=== PATIENT | female | born 2000 | race Caucasian/White ===

== ENCOUNTER 2022-03-10 07:43 | Inpatient (IN) ==
--- NOTE | 2022-02-17 11:15 | PAT Medication Instructions ---
Medication Instructions Date of Service February 17, 2022 Home Medications atorvastatin 10 mg tablet (Lipitor) 10 mg PO HS bupropion HCl 150 mg tablet,12 hr sustained-release 150 mg PO BID ergocalciferol (vitamin D2) 1,250 mcg (50,000 unit) capsule (Vitamin D2) 1,250 mcg PO QAM multivitamin-ferrous fumarate-folic acid 18 mg-400 mcg tablet (Centrum Complete) 1 tab PO QAM naltrexone 50 mg tablet 25 mg PO BID sertraline 50 mg tablet 50 mg PO HS spironolactone 50 mg tablet 50 mg PO HS ASK your prescriber and surgeon naltrexone 50 mg tablet 25 mg PO BID (stop taking 72 hours prior to surgery if able- check with prescribing provider) DO NOT take the morning of surgery ergocalciferol (vitamin D2) 1,250 mcg (50,000 unit) capsule (Vitamin D2) 1,250 mcg PO QAM multivitamin-ferrous fumarate-folic acid 18 mg-400 mcg tablet (Centrum Complete) 1 tab PO QAM Take morning of surgery With a small sip of water, OTHERWISE NOTHING TO EAT OR DRINK AFTER MIDNIGHT: bupropion HCl 150 mg tablet,12 hr sustained-release 150 mg PO BID Take evening before surgery atorvastatin 10 mg tablet (Lipitor) 10 mg PO HS bupropion HCl 150 mg tablet,12 hr sustained-release 150 mg PO BID sertraline 50 mg tablet 50 mg PO HS spironolactone 50 mg tablet 50 mg PO HS Other Notes If you have any questions please call us at [phone] or [phone] or [phone] or [phone]
--- NOTE | 2022-02-24 11:21 | Anesthesiology Consultation ---
Date of Service February 24, 2022 Assessment & Plan (1) Encounter for pre-operative examination: - Patient acceptable risk for surgery pending surgeon-ordered preop UA. Patient was unable to void at [facility] and will be taking urine sample to PCP/Dr. Kelly Castillo. Awaiting preop UA report. - COVID screening: Per assessment on 02/24: No known COVID-19 positive contacts or current COVID-19 related symptoms. Travel screen NEGATIVE. Surgeon arranging preop COVID testing. Awaiting results. - Check test AM DOS Chart Review Chart Review: Patient seen in Pre Admission Testing Teaching & Discussion Pre-Anesthesia Teaching/Discussion Notes: Instructed NPO after midnight before surgery,except medications with 15 cc of water. Medication instructions provided according to the [facility] guidelines. History Surgery Operation Date: 03/10/22 10:05 Proposed Procedures p L3 - L4 Decompression and Disectomy, Spinal Cord Monitoring - Antonio Quintero, Height/Weight Height: 5 ft 3 in Weight: 150.7 kg Allergies Allergy/AdvReac Type Severity Reaction Status Date / Time amoxicillin Allergy Unknown Hives Verified 02/17/22 10:17 cefuroxime [From Ceftin] Allergy Unknown Hives Verified 02/17/22 10:44 sulfamethoxazole Allergy Unknown Hives Verified 02/17/22 10:18 [From Bactrim] trimethoprim [From Bactrim] Allergy Unknown Hives Verified 02/17/22 10:18 Medications Home Medications Medication Instructions Recorded Confirmed Last Taken atorvastatin 10 mg tablet (Lipitor) 10 mg PO HS 02/17/22 02/17/22 Unknown bupropion HCl 150 mg tablet,12 hr 150 mg PO BID 02/17/22 02/17/22 Unknown sustained-release ergocalciferol (vitamin D2) 1,250 1,250 mcg PO QAM 02/17/22 02/17/22 Unknown mcg (50,000 unit) capsule (Vitamin D2) multivitamin-ferrous 1 tab PO QAM 02/17/22 02/17/22 Unknown fumarate-folic acid 18 mg-400 mcg tablet (Centrum Complete) naltrexone 50 mg tablet 25 mg PO BID 02/17/22 02/17/22 Unknown sertraline 50 mg tablet 50 mg PO HS 02/17/22 02/17/22 Unknown spironolactone 50 mg tablet 50 mg PO HS 02/17/22 02/17/22 Unknown Past Medical History Medical History Anxiety Depression Elevated testosterone level in female Reason for spironolactone per pt Foot drop, left Hyperlipidemia Lumbar disc disease Morbid obesity Sleep apnea CPAP (occasional) Exercise / Class Metabolic Activity III < 4 Walking/Shop/Light housework (uses cane PRN) Past Surgical History Surgical History S/P colonoscopy S/P tonsillectomy and adenoidectomy Past Anesthesia History No Hx of Anesthesia Complications and No Family Hx of Anesthesia Complications History of PONV No Hx of PONV and No Hx of Motion Sickness Social History Smoking Status: Current every day smoker tobacco type: e-cigarettes (Vapes daily (trying to decrease)) Do You Dip or Chew Tobacco: No Hx Alcohol Use: Yes (Occasional) Alcohol type: beer, wine and hard liquor alcohol intake frequency: a few times a month Hx Substance Use: No substance use type: does not use Review of Systems Patient denies chest pain, shortness of breath, fever, chills, cough, wheezing, palpitations. Physical Exam Vital Signs VITALS BP 128/70 P 100 TEMP 98.8 SP02 96%RA RESP 16 PHYSICAL Full cervical extension range of motion. Full TMJ range of motion. TMD 3 finger breaths Mallampati Score 3 Dentition: intact (+ tongue piercing- pt made aware to remove DOS) Lungs: clear throughout to auscultation Cardiac: regular rate and rhythm, no murmurs noted Spine: normal Carotid arteries: negative bruit Extremities: no edema Thick neck Lab Results Anesthesia Preop Results Results Anesthesia Widget: WBC 10.11 K/uL (4.8-10.8) 02/24/22 Hgb 13.0 g/dL (12.0-16.0) 02/24/22 Hct 39.0 % (37-47) 02/24/22 Plt 386 K/uL (130-400) 02/24/22 PT 10.6 Seconds (9.0-12.0) 02/24/22 PTT 33.7 Seconds (21.0-31.0) H 02/24/22 INR 1.0 (0.9-1.1) 02/24/22 Blood Type A Positive 02/24/22 Antibody Screen NEGATIVE 02/24/22 Testing Laboratory Results 01/26/22 SODIUM 140 POTASSIUM 4.5 CHLORIDE 101 CO2 27 BUN 13 CREATININE 0.8 GLUCOSE 94 A1C 5.5% Electrocardiogram Date: 02/24/22 NSR with sinus arrhythmia at 89bpm. Normal ECG. Chest X-Ray Date: 02/24/22 FINDINGS: Frontal and lateral radiographs of the chest demonstrate the cardiomediastinal silhouette to be within normal limits. The lungs are clear of alveolar opacities. There is no evidence for effusion bilaterally. There is no evidence for vascular congestion. There is no acute osseous pathology. IMPRESSION: No acute cardiopulmonary disease.
[~2022-03-10 07:43] MED LIST: ACETAMINOPHEN 500 MG TAB PO SCH; CLINDAMYCIN/D5W 600 MG/50 ML BAG **Premixed Bag IV SCH; CeleBREX 200 MG CAP PO SCH; GABAPENTIN 900 MG DOSE PO SCH; LR 15ML/HR IV SCH
[2022-03-10] MEDS ORDERED: fentaNYL citrate 100 MCG/2 ML VIAL ONE (08:25)
[2022-03-10] MEDS ORDERED: LIDOCAINE 2% 2 ML VIAL/AMP(20MG/ML) INFIL ONE (08:26)
[2022-03-10] MEDS ORDERED: PROPOFOL IV EMULSION 10 MG/ML 20 ML VIAL IV ONE (08:26)
[2022-03-10] MEDS ORDERED: MIDAZOLAM HCL 1 MG/ML 2ML VIAL ONE (08:26)
[2022-03-10] MEDS ORDERED: DEXAMETHASONE SOD INJ 4 MG/ML VIAL ONE (08:26)
[2022-03-10] MEDS ORDERED: SUCCINYLCHOLINE CHLORIDE 20 MG/ML 10 ML VIAL IV ONE (08:26)
[2022-03-10] MEDS ORDERED: ROCURONIUM BROMIDE 10 MG/ML 5 ML VIAL IV ONE ×6 (08:26→12:05)
[2022-03-10] MEDS ORDERED: ONDANSETRON INJ 2 MG/ML 2 ML VIAL ONE (08:26)
--- NOTE | 2022-03-10 08:42 | History & Physical Bridge Note ---
Date of Service March 10, 2022 History & Physical Bridge Note I have examined the patient, reviewed the History & Physical and in the interval since the performance of the History & Physical I have noted the following changes of clinical significance: no changes noted
[2022-03-10] MEDS ORDERED: ceFAZolin 330 MG/ML 1 GM VIAL ONE (08:44)
[2022-03-10] MEDS ORDERED: BUPIVACAINE/EPINEPHRINE 0.25% 1:200,000 30 ML VIAL ONE (08:44)
--- NOTE | 2022-03-10 08:44 | History & Physical Report ---
Date of Service March 10, 2022 Assessment & Plan (1) Lumbar disc herniation with radiculopathy: Plan: L3-L4 decompression and discectomy History of Present Illness Chief Complaint: Back and leg pain Primary Care Provider: Kelly Herzog This is a 21-year-old female who presents with severe back and leg pain. Fail ing course of nonoperative care she is here for surgical invention. Allergies Allergy/AdvReac Type Severity Reaction Status Date / Time amoxicillin Allergy Unknown Hives Verified 03/10/22 08:11 cefuroxime [From Ceftin] Allergy Unknown Hives Verified 03/10/22 08:11 sulfamethoxazole Allergy Unknown Hives Verified 03/10/22 08:11 [From Bactrim] trimethoprim [From Bactrim] Allergy Unknown Hives Verified 03/10/22 08:11 Home Medications Medication Instructions Recorded Confirmed Type atorvastatin 10 mg tablet (Lipitor) 10 mg PO HS 02/17/22 03/10/22 History bupropion HCl 150 mg tablet,12 hr 150 mg PO BID 02/17/22 03/10/22 History sustained-release ergocalciferol (vitamin D2) 1,250 1,250 mcg PO QAM 02/17/22 03/10/22 History mcg (50,000 unit) capsule (Vitamin D2) multivitamin-ferrous 1 tab PO QAM 02/17/22 03/10/22 History fumarate-folic acid 18 mg-400 mcg tablet (Centrum Complete) naltrexone 50 mg tablet 25 mg PO BID 02/17/22 03/10/22 History sertraline 50 mg tablet 50 mg PO HS 02/17/22 03/10/22 History spironolactone 50 mg tablet 50 mg PO HS 02/17/22 03/10/22 History Past Med/Surg History Medical History Anxiety Depression Elevated testosterone level in female Reason for spironolactone per pt Foot drop, left Hyperlipidemia Lumbar disc disease Morbid obesity Sleep apnea CPAP (occasional) Surgical History S/P colonoscopy S/P tonsillectomy and adenoidectomy Social History Smoking Status: Current every day smoker Tobacco Type: E-cigarettes / Vaping Second Hand Exposure: No; Do You Dip or Chew Tobacco: No; Tobacco Cessation Education Requested by Patient: No Hx Alcohol Use: Yes (Occasional) Alcohol type: beer, wine and hard liquor Hx Substance Use: No Preferred Language: Macedonian Communication Ability: Effective Pipe Smoking Machine Offbearer Required: No Beliefs That Will Affect Care: None Current Living Situation: Parent Other Information That Helps Us Care for You: No Feels Safe at Home: Yes Safety Concerns: Feels Safe At This Time Assistive Devices: Cane, CPAP and Glasses Physical Exam Physical Exam: Patient is alert and oriented Heart regular in rhythm Lungs clear Results & Data Results & Data ([facility]) Vital Signs (Past 12 Hours) Vital Signs Temp Pulse Resp BP Pulse Ox 03/10/22 08:14 37.4 C 97 H 18 140/71 97
[2022-03-10 08:54] LABS: Pregnancy Test, Serum Negative (Negative)
[2022-03-10] MEDS ORDERED: PROMETHAZINE HCL 12.5 MG in SODIUM CHLORIDE 0.9% 50 ML IV PRN ×2 (09:02→12:38)
[2022-03-10] MEDS ORDERED: ATROPINE SULFATE 0.1 MG/ML 10ML SYR IV PRN (09:02)
[2022-03-10] MEDS ORDERED: HYDROmorphone INJ 2 MG/ML SYR/VIAL IV PRN (09:02)
[2022-03-10] MEDS ORDERED: ONDANSETRON INJ 2 MG/ML 2 ML VIAL IV PRN ×2 (09:02→12:38)
[2022-03-10] MEDS ORDERED: ePHEDrine sulfate 50 MG/ML AMP IV PRN (09:02)
[2022-03-10] MEDS ORDERED: CLINDAMYCIN 300 MG/D5W 50 ML BAG IV ONE (09:35)
[2022-03-10] MEDS ORDERED: CLINDAMYCIN PHOS 300 MG/2 ML VIAL IV ONE (10:16)
[2022-03-10] MEDS ORDERED: PHENYLEPHRINE HCL 10 MG/ML VIAL ONE (10:23)
[2022-03-10] MEDS ORDERED: GLYCOPYRROLATE 0.2 MG/ML VIAL ONE (10:24)
[2022-03-10] MEDS ORDERED: NEOSTIGMINE METHYLSULFATE 1 MG/ML 10ML VIAL ONE (10:24)
[2022-03-10] MEDS ORDERED: FLOSEAL HEMOSTATIC MATRIX 10ML TOP ONE (10:36)
--- NOTE | 2022-03-10 10:51 | Operative Report ---
Post Operative Report Pre & Post Diagnosis Operation Date: 03/10/22 09:15 Pre-Op Diagnosis: L3-L4 disc herniation with radiculopathy Morbid obesity Post-Op Diagnosis: L3-L4 disc herniation with radiculopathy Morbid obesity I identified the patient and participated in the time-out.: Yes Procedure Operation Date: 03/10/22 09:15 Actual Procedures Lumbar decompression with bilateral medial facetectomies and partial discectomy L3-L4 Surgeon Antonio Quintero, DO Buyer Intern None Estimated Blood Loss 25 Findings See Below The patient is 5 foot 3 inches tall weighing over 152 kg with a BMI in excess of 59. Patient's body habitus did contribute to significant technical difficulty requiring her deepest retractors and longer instruments in order to perform her procedure. This had at least 50% increased operative time. Specimens None Indications This is a 21-year-old female presents with above-mentioned diagnosis of failed course of nonoperative care and having progressive neuro deficit is here for surgical invention. Description of Procedure Patient was met with identified informed consent obtained. Patient was then taken to the operative suite underwent patient placed in a prone position the Wister table top Brennen frame. All bony prominences well-padded eyes inspected to ensure no external pressure placed upon the. This point the lumbar spine was prepped and draped no sterile fashion. Sharp dissection with assistance of Bovie cautery from down to and exposing the lamina and interlaminar space at L3- L4. Self-retaining retractors placed. Then for midline decompression including bilateral medial facetectomies addressing severe spinal stenosis and obvious neural compression. Was able to mobilize the left traversing nerve root medially to excise massive amounts of disc material that were occupying a canal. After these were removed the area was copiously irrigated explored to ensure all loose fragments addressed. 10 round TAZ drain inserted. The incision was then closed with 1 Vicryl the fascia 2-0 Vicryl subcutaneously and 4 Monocryl for final skin closure. Steri-Strip sterile dressings placed. Patient will continue PACU stable condition. I attest to the content of the Intraoperative Record and any orders documented therein. Any exceptions are noted below.
[2022-03-10] MEDS: fentaNYL citrate 100 MCG/2 ML VIAL IV PRN ×3 (11:13→12:00)
--- NOTE | 2022-03-10 12:19 | Fluoroscopy Report ---
INTRAOPERATIVE RADIOGRAPH CLINICAL HISTORY: L3-L4 discectomy. Fluoroscopy time: 3 seconds. FINDINGS: A single spot fluoroscopic image of the lumbar spine is presented. A surgical probe project s posteriorly at the level of the superior endplate of L4. IMPRESSION: Intraoperative image from lumbar spinal surgery as above. Electronically signed by: Sukhjinder Daley M.D. 03/10/2022 12:18 PM
[2022-03-10] MEDS: LACTATED RINGER'S 1,000 ML IV SCH ×2 (12:30→20:00)
[2022-03-10] MEDS ORDERED: LORazepam 0.5 MG TAB PO PRN (12:38)
[2022-03-10] MEDS ORDERED: ONDANSETRON 4 MG OD TAB PO PRN (12:38)
[2022-03-10] MEDS ORDERED: DO NOT ADMINISTER PNEUMOCOCCAL VACCINE PRN (12:38)
[2022-03-10] MEDS ORDERED: HYDROmorphone INJ 1 MG/ML SYRINGE IV PRN (12:38)
[2022-03-10] MEDS ORDERED: METOCLOPRAMIDE HCL INJ 5 MG/ML 2 ML VIAL IV PRN (12:38)
[2022-03-10] MEDS ORDERED: NALOXONE HCL 0.4 MG/1 ML VIAL/CARP IV PRN (12:38)
[2022-03-10] MEDS ORDERED: SOD PHOSPHATE/SOD BIPHOSPHATE ENEMA 132 ML BTL PR PRN (12:38)
[2022-03-10] MEDS ORDERED: traMADol HCL 50 MG TABLET PO PRN (12:38)
[2022-03-10] MEDS ORDERED: LORazepam 0.5 MG in SYRINGE 0.25 ML IV PRN (12:38)
[2022-03-10] MEDS ORDERED: MAGNESIUM HYDROXIDE SUSP 30 ML UDC PO PRN (12:38)
[2022-03-10] MEDS ORDERED: HYDROmorphone INJ 0.5 MG/0.5 ML SYR IV PRN (12:38)
[2022-03-10] MEDS ORDERED: ACETAMINOPHEN 500 MG TAB PO PRN (12:38)
[2022-03-10] MEDS ORDERED: DO NOT ADMINISTER FLU VACCINE PRN (12:38)
[2022-03-10] MEDS ORDERED: ALUMINUM/MAGNESIUM SUSP 30 ML UDC PO PRN (12:38)
[2022-03-10] MEDS ORDERED: diphenhydrAMINE Capsule 25 MG CAP PO PRN (12:38)
[2022-03-10] MEDS ORDERED: bisacodyL 10 MG SUPP PR PRN (12:38)
[2022-03-10] MEDS ORDERED: ACETAMINOPHEN 1,000 MG/100 ML VIAL IV PRN (12:38)
[2022-03-10] MEDS ORDERED: FAMOTIDINE 20 MG TAB PO PRN (12:38)
[2022-03-10] MEDS ORDERED: hydrOXYzine HCl 25 MG TAB PO PRN (12:38)
--- NOTE | 2022-03-10 12:39 | Anesthesiology Progress Note ---
Date of Service March 10, 2022 Anesthesia Post Procedure Vital Signs Vital Signs: Temp Pulse Pulse Resp BP Pulse Ox 03/10/22 12:20 98 H 20 117/73 96 03/10/22 12:10 36.4 C L 95 H 20 129/73 96 03/10/22 12:00 36.4 C L 90 19 111/68 95 03/10/22 11:50 91 H 20 115/62 96 03/10/22 11:40 90 22 119/75 98 03/10/22 11:30 99 H 20 117/76 94 03/10/22 11:20 98 H 20 123/80 97 03/10/22 11:10 99 H 20 128/78 100 03/10/22 11:05 100 H 18 107/72 100 03/10/22 10:59 37.0 C 103 H 14 126/55 L 96 03/10/22 08:14 37.4 C 97 H 18 140/71 97 Pain Intensity Back: Pain Intensity: 2 Transfer of Care Handoff Completed per policy Notes Mental Status: alert / awake / arousable and participated in evaluation Patient Amnestic to Procedure: Yes Nausea / Vomiting: adequately controlled Pain: adequately controlled Airway Patency, RR, SpO2: stable & adequate BP & HR: stable & adequate Hydration State: stable & adequate Anesthetic Complications: no major complications apparent
[2022-03-10] MEDS: KETOROLAC 30 MG/ML VIAL IV SCH ×2 (14:39→20:52)
[2022-03-10] MEDS: oxyCODONE HCL IR 5 MG TAB (IMMEDIATE RELEASE) PO PRN (16:40)
[2022-03-10] MEDS: CLINDAMYCIN 600 MG in DEXTROSE 5% 50 ML IV SCH (16:42)
[2022-03-10] MEDS: buPROPion SR 150 MG TABCR PO SCH (20:53)
[2022-03-10] MEDS ORDERED: SERTRALINE HCL 50 MG TABLET PO SCH (21:00)
[2022-03-10] MEDS ORDERED: DOCUSATE SODIUM/SENNA 50/8.6MG TAB PO SCH (21:00)
[2022-03-10] MEDS ORDERED: SPIRONOLACTONE 25 MG TAB PO SCH (21:00)
[2022-03-10] MEDS ORDERED: ATORVASTATIN 10 MG TAB PO SCH (21:00)
[2022-03-11] MEDS: CLINDAMYCIN 600 MG in DEXTROSE 5% 50 ML IV SCH (01:19)
[2022-03-11] MEDS: KETOROLAC 30 MG/ML VIAL IV SCH ×2 (01:19→07:38)
[2022-03-11] MEDS: LACTATED RINGER'S 1,000 ML IV SCH (04:09)
[2022-03-11] MEDS: POLYETHYLENE (MIRALAX) 17 GM PACK PO SCH ×3 (05:47→18:34)
[2022-03-11] MEDS: buPROPion SR 150 MG TABCR PO SCH (08:11)
--- NOTE | 2022-03-11 10:56 | Discharge Summary ---
Date of Service March 11, 2022 Admission HPI Per Admitting Provider This is a 21-year-old female who presents with severe back and leg pain. Failing course of nonoperative care she is here for surgical invention. Principal Diagnosis Lumbar disc herniation with radiculopathy Discharge Data Allergies Allergy/AdvReac Type Severity Reaction Status Date / Time amoxicillin Allergy Unknown Hives Verified 03/10/22 08:11 cefuroxime [From Ceftin] Allergy Unknown Hives Verified 03/10/22 08:11 sulfamethoxazole Allergy Unknown Hives Verified 03/10/22 08:11 [From Bactrim] trimethoprim [From Bactrim] Allergy Unknown Hives Verified 03/10/22 08:11 Procedures Performed Operation Date: 03/10/22 09:15 Actual Procedures p L3 - L4 Decompression and Disectomy(Left) - Antonio Quintero DO Ordered Studies 03/10/22 09:15 FL spine 1V any level Routine Hospital Course (1) Lumbar disc herniation with radiculopathy: Patient with lumbar decompression tolerated so was taken to orthopedic for postoperative. Postop day 1 note she was up and ambulating without difficulty pain well controlled. TAZ drain decreasing probably. Separately discharged home. Discharge orders instructions from the chart for further review. Total Time Total Time Spent Total Time Spent (In Minutes): 20 minutes Discharge Plan Discharge Items Patient Disposition: Home - Self-Care Reason For Visit: Other Unvertebral Disc Displacement, Lumbar Region Discharge Diagnosis: Lumbar spinal stenosis with neurogenic claudication Activity: As commented below Non-emergency contact: Primary Care Provider Call non-emergency contact if: you have any medication questions Follow-up/Referrals: Kelly Herzog D.O. [Primary Care Provider] - Diet: Regular Addtl Attending Provider Instructions: ACTIVITY RECOMMENDATIONS: SELF CARE INSTRUCTIONS AFTER A LAMINECTOMY 1. No prolonged sitting (less than 30 minutes for the first 3 weeks after surgery). 2. No bending, lifting more than 5 pounds, or twisting (roll like a log when turning in bed). 3. You may shower 3 days after surgery if no drainage from wound. Thoroughly dry wound. Do not soak in the tub. 4. Please walk as much as you can for exercise. Gradually increase the distance that you walk as your endurance increases. 5. You may drive in 7-10 days if you are comfortable and no longer requiring pain medications. SPECIAL CARE INSTRUCTIONS: VERY IMPORTANT TO READ AND REVIEW A. Your surgical incision has been closed with a cosmetic suture under the skin that will dissolve in about 6 weeks. In 14 days, you can use a pair of clean scissors and cut the suture that is left outside of the skin at the ends of your incision. B. Complications are uncommon, but please contact us if you have any signs or symptoms of: 1. wound infection (fever higher than 102.5 degrees F, redness, separation of wound, drainage, or increasing pain from the incision) 2. blood clots in legs (pain, swelling, redness and warmth in legs) 3. urinary tract infection (fever higher than 102.5 degrees, burning upon urination or increased frequency of urination) 4. nerve problems (inability to walk on your toes or heels, numbness, loss of bowel or bladder control) 5. any other symptoms that concern you. C. Please call the office at if you have any concerns or questions about your operation or recovery. MANAGING PAIN AFTER SPINAL SURGERY 1. Narcotic medication is intended for short-term use and will be provided for surgical pain. Surgical pain usually lasts for a period of 4-6 weeks. Narcotic medication includes Percocet, Vicodin, Darvocet, Tylenol #3 or Lortab. 2. Longer-term pain is more appropriately treated with non-narcotic medication such as Tylenol ES. 3. Muscle spasm is not appropriately treated with narcotics. Muscle relaxers such as Soma, Flexeril or Skelaxin can be used along with Tylenol ES. 4. Remember that we all live with some "aches and pains". This is not unusual or uncommon after an injury or as we get older. 5. We will provide appropriate medication within the normal guidelines of their prescribed use. We will also be very cautious and aware of potential abuse and extended duration of patients' medication needs. 6. Please allow 2-3 days to process refills. Prescriptions will not be mailed but must be picked up at the office. FOLLOW UP VISIT: Keep your scheduled follow-up appointment. Any questions, please call the office at . Pending Studies at Discharge: No Stand-Alone Forms: My [employer], Smoking Cessation Medications and DC Order Prescriptions: New tramadol 50 mg tablet 50 mg PO Q6H PRN (Reason: pain, moderate) Qty: 20 RF: 0 Continued bupropion HCl 150 mg Tablet Sustained-Release 12 Hr 150 mg PO BID RF: 0 atorvastatin [Lipitor] 10 mg Tablet 10 mg PO HS RF: 0 naltrexone 50 mg Tablet 25 mg PO BID RF: 0 ergocalciferol (vitamin D2) [Vitamin D2] 1,250 mcg (50,000 unit) Capsule 1,250 mcg PO QAM RF: 0 sertraline 50 mg Tablet 50 mg PO HS RF: 0 Centrum Complete 18-400 mg-mcg Tablet 1 tab PO QAM RF: 0 spironolactone 50 mg Tablet 50 mg PO HS RF: 0 Discharge Orders: Discharge Order (Routine); Ordered 03/11/22 Ordered By: Antonio Quintero Admission Data Admit Date/Time: 03/10/22 10:56 Attending Provider: Antonio Quintero Admit Provider: Antonio Quintero Primary Care Provider: Kelly Herzog
[2022-03-11] MEDS: oxyCODONE HCL IR 5 MG TAB (IMMEDIATE RELEASE) PO PRN (13:30)
[2022-03-12] MEDS ORDERED: ERGOCALCIFEROL 50,000 UNITS 1250 MCG CAP PO SCH (21:00)
== END 2022-03-11 19:40 | disposition home or self-care (01) | DRG 519 ==
LOC: ASU 07:43 → 3E 10:56